=== PATIENT | male | born 1995 | race Asian ===

== ENCOUNTER 2017-03-25 20:29 | Emergency (ER) | payer MEDICAID ==
[~2017-03-25] VITALS: Ht 180.3 cm; Wt 64.4 kg
[2017-03-25 23:13] VITALS: BP 123/80
== END 2017-03-25 23:13 | disposition home or self-care (01) ==
LOC: ED 20:29
DX: H91.93 Unspecified hearing loss, bilateral (principal); H93.11 Tinnitus, right ear